=== PATIENT | male | born 1940 | race Caucasian/White ===

== ENCOUNTER 2019-02-22 09:58 | Outpatient (CLI) | payer MEDICARE | END 2019-02-22 09:59 | disposition home or self-care (01) | LOC: C.RT 09:58 | DX: J43.9 Emphysema, unspecified (principal) ==

== ENCOUNTER 2019-03-01 10:58 | Observation (INO) | payer MEDICARE ==
[2019-03-01 11:46] LABS: BASO % 0.2 % (0.0-2.0); EOS # 0.1 K/uL (0.0-0.7); EOS % 1.3 % (0.0-4.0); HEMOGLOBIN 13.9 g/dL (12.0-18.0); LYMPH % 10.3 % (20.0-40.0); MEAN CORPUSCULAR HEMOGLOBIN 36.5 pg (27.0-31.0); MEAN CORPUSCULAR HGB CONC 34.5 g/dL (33.0-37.0); MEAN PLATELET VOLUME 8.8 fL (7.2-11.7); MONO # 0.5 K/uL (0.0-0.8); MONO % 5.4 % (0.0-10.0); NEUT # 7.7 K/uL (1.8-7.0); NEUT % 82.8 % (50.0-75.0); RBC 3.8 Mil/uL (4.40-5.90); RED CELL DISTRIBUTION WIDTH 13.3 % (11.5-14.5)
[2019-03-01 11:57] LABS: MEAN CELL VOLUME 105.9 fL (80.0-94.0); WHITE BLOOD COUNT 9.3 K/uL (4.8-10.8)
[2019-03-01 12:18] LABS: BLOOD UREA NITROGEN 19 mg/dL (9-20); CALCIUM 9.2 mg/dl (8.6-10.4); GFR NON-AFRICAN AMERICAN 49
[2019-03-01 12:24] LABS: ALB/GLOB RATIO 1.1 (1.0-2.1); ALBUMIN 4.5 g/dL (3.5-5.0); ALT/SGPT 8 U/L (21-72); AST/SGOT 67 U/L (17-59)
[2019-03-01 13:00] LABS: B-TYPE NATRIURETIC PEPTIDE 54.7 pg/mL (0-900)
[2019-03-01 13:26] LABS: SQUAMOUS EPITHIAL < 1 /hpf (0-5); URINE BILIRUBIN NEGATIVE (NEGATIVE); URINE BLOOD NEGATIVE (NEGATIVE); URINE CLARITY Hazy (Clear); URINE COLOR Amber (YELLOW); URINE GLUCOSE (UA) NORMAL (Normal); URINE LEUKOCYTE ESTERASE NEG Leu/uL (Negative); URINE PROTEIN 1+ mg/dL (NEGATIVE)
--- NOTE | 2019-03-01 13:28 | RAD ---
Date of service: 03/01/2019 PROCEDURE: Radiographs of the chest and abdomen (obstructive series) HISTORY: belly pains, sob COMPARISON: No prior. TECHNIQUE: AP radiograph of the chest, with upright and supine radiographs of the abdomen. 3 views obtained. FINDINGS: CHEST: Lungs: Clear. Cardiovascular: Normal size heart. No pulmonary vascular congestion. No aortic atherosclerotic calcification present Pleura: No pleural fluid. No pneumothorax. Other findings: None. ABDOMEN AND PELVIS: Bowel: Constipation without fecal impaction or obstruction. Free air: None. Bones: Unremarkable. Other findings: None. IMPRESSION: Constipation without fecal impaction or obstruction. Concordant results with the preliminary interpretation rendered by the emergency department physician procedure.
--- NOTE | 2019-03-01 13:32 | C.PDOC ---
History Of Present Illness 79 y/o male brought to ER by ambulance for evaluation of sudden onset of hypotension. Patient was in his PMD 's office and he was found to have bp 80/40. Patient was also found to have heart rate in the 40's. He was found to be pale and ashen. 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 Denies having fever,chills, and other complaints at this time. Time Seen by Provider: 03/01/19 11:57 Chief Complaint (Nursing): Altered Mental Status History Per: Patient History/Exam Limitations: None Onset/Duration Of Symptoms: Hrs Current Symptoms Are (Timing): Gone Severity: Moderate Past Medical History Reviewed: Historical Data, Nursing Documentation, Vital Signs Vital Signs: Last Vital Signs Temp 97.5 F L 03/01/19 11:07 Pulse 72 03/01/19 11:07 Resp 16 03/01/19 11:07 BP 115/67 03/01/19 11:07 Pulse Ox 95 03/01/19 11:07 Primary Care Provider: Sydney Hong - Medical History PMH: Dementia (recent dx 03/05), HTN Other Surgeries: Hx of surgeries Family History: States: No Known Family Hx - Social History Hx Alcohol Use: No Hx Substance Use: No Review Of Systems Except As Marked, All Systems Reviewed And Found Negative. Constitutional: Positive for: Other (hypotension). Negative for: Fever, Chills Cardiovascular: Negative for: Chest Pain Respiratory: Negative for: Shortness of Breath Gastrointestinal: Negative for: Nausea, Vomiting, Abdominal Pain Physical Exam - Physical Exam Appears: No Acute Distress, Other (well developed obese male, hard of hearing, reads lips, speaks Uzbek, at bedside speaks Sami) Skin: Normal Color, Warm, Dry Head: Atraumatic, Normacephalic Eye(s): bilateral: Normal Inspection Nose: Normal Oral Mucosa: Moist Neck: Supple Chest: Symmetrical Cardiovascular: Rhythm Regular Respiratory: Normal Breath Sounds, No Rales, No Rhonchi, No Wheezing Gastrointestinal/Abdominal: Normal Exam, Soft, No Tenderness, No Guarding, No Rebound Neurological/Psych: Oriented x3, Normal Speech ED Course And Treatment - Laboratory Results Result Diagrams: 03/01/19 11:42 03/01/19 11:42 Lab Results: Troponin I < 0.0120 ng/mL (0.00-0.120) 03/01/19 11:42 NT-Pro-B Natriuret Pep 54.7 pg/mL (0-900) 03/01/19 11:42 Total Bilirubin 1.3 mg/dL (0.2-1.3) 03/01/19 11:42 AST 67 U/L (17-59) H 03/01/19 11:42 ALT 8 U/L (21-72) L D 03/01/19 11:42 Alkaline Phosphatase 75 U/L (38-126) 03/01/19 11:42 Total Protein 8.7 g/dL (6.3-8.3) H 03/01/19 11:42 Albumin 4.5 g/dL (3.5-5.0) 03/01/19 11:42 Globulin 4.2 gm/dL (2.2-3.9) H 03/01/19 11:42 Albumin/Globulin Ratio 1.1 (1.0-2.1) 03/01/19 11:42 Lab Interpretation: Normal ECG: Interpreted By Me ECG Rhythm: Sinus Rhythm ECG Interpretation: Normal Rate From EC O2 Sat by Pulse Oximetry: 95 (RA) Pulse Ox Interpretation: Normal (baseline) - Radiology CXR: Interpreted by Me CXR Interpretation: Yes: No Acute Disease - Other Rad abd x 2 X-Ray: Interpreted by Me (mod increased stool/gas) Reevaluation Time: 13:33 Reassessment Condition: Improved (remains asymptomatic, clear lungs, no complaints now) - Physician Consult Information Outcome Of Conversation: 1330: d/w Dr. Leary- PMD who referred him today- would like Tele Obs Medical Decision Making Medical Decision Making: ? vasovagal episode @ Dr. Leary's office- hypotensive and bradycardic benign presentation in ED normal w/u Tele obs Disposition Doctor Will See Patient In The: Hospital Counseled Patient/Family Regarding: Studies Performed, Diagnosis - Disposition Disposition: HOSPITALIZED Disposition Time: 13:35 Condition: GOOD - Clinical Impression Clinical Impression: Change in mental state - Scribe Statement The provider has reviewed the documentation as recorded by the Scribe Sascha Myers Provider Attestation: All medical record entries made by the Scribe were at my direction and personally dictated by me. I have reviewed the chart and agree that the record accurately reflects my personal performance of the history, physical exam, medical decision making, and the department course for this patient. I have also personally directed, reviewed, and agree with the discharge instructions and disposition.
[2019-03-01] MEDS: Sodium Chloride 0.45% 1,000 ML IV SCH (20:28)
[2019-03-02 07:30] LABS: CK-MB 0.48 ng/mL (0.0-3.38)
[2019-03-02 07:43] LABS: ALB/GLOB RATIO 1.1 (1.0-2.1); ALBUMIN 3.6 g/dL (3.5-5.0); ALT/SGPT 23 U/L (21-72); AST/SGOT 28 U/L (17-59); BLOOD UREA NITROGEN 16 mg/dL (9-20); CALCIUM 8.9 mg/dl (8.6-10.4); GFR NON-AFRICAN AMERICAN > 60
--- NOTE | 2019-03-02 11:08 | CP.PCM.CON ---
History of Present Illness - History of Present Illness History of Present Illness: The pt is an 79 yo man, non smoker, not a diabetic, non smoker, who has been on enalapril, aricept, and alpha alize for his prostate. Pt was in Dr Hong's office and she noted hi to be pale. BP was 80 systolic heart rate in the 40's. Pt says that had eaten that day. No chest pain. Pt here in the hospital feels better. TNI negative. ECG shows mild non specific st changes. Meds have been held. Glucose was high and pt has proteinuria. Review of Systems - Review of Systems All systems: reviewed and no additional remarkable complaints except (as above) Past Patient History - Past Social History Smoking Status: Never Smoked - CARDIAC Hx Hypertension: Yes - NEUROLOGICAL Hx Dementia: Yes (recent dx 03/05) - PSYCHIATRIC Hx Substance Use: No - SURGICAL HISTORY Hx Surgeries: Yes Other/Comment: right knee - ANESTHESIA Hx Anesthesia: Yes Hx Anesthesia Reactions: No Hx Malignant Hyperthermia: No Meds Allergies/Adverse Reactions: Allergies Allergy/AdvReac Type Severity Reaction Status Date / Time No Known Allergies Allergy Verified 03/01/19 11:02 - Medications Medications: Current Medications Donepezil HCl (Aricept) 5 mg PO HS REPLACED BY [facility] Last Admin: 03/01/19 21:16 Dose: 5 mg Heparin Sodium (Porcine) (Heparin) 5,000 units SC Q8 REPLACED BY [facility] Last Admin: 03/02/19 05:23 Dose: 5,000 units Sodium Chloride (Sodium Chloride 0.45%) 1,000 mls @ 60 mls/hr IV .[id number] REPLACED BY [facility] Last Admin: 03/01/19 20:28 Dose: 60 mls/hr Pneumococcal Polyvalent Vaccine (Pneumovax 23 Vaccine) 0.5 ml IM .ONCE ONE Stop: 03/03/19 10:01 Physical Exam - Constitutional Appears: Well - Head Exam Head Exam: ATRAUMATIC - Eye Exam Eye Exam: EOMI Pupil Exam: NORMAL ACCOMODATION - ENT Exam ENT Exam: Mucous Membranes Moist - Respiratory Exam Respiratory Exam: Clear to Auscultation Bilateral, NORMAL BREATHING PATTERN - Cardiovascular Exam Cardiovascular Exam: REGULAR RHYTHM - Exam External exam: NORMAL EXTERNAL EXAM - Extremities Exam Extremities exam: Positive for: normal inspection - Neurological Exam Neurological exam: Alert, CN II-XII Intact, Oriented x3, Reflexes Normal Additional comments: Pt is deaf, reads lips - Psychiatric Exam Psychiatric exam: Normal Affect, Normal Mood - Skin Skin Exam: Normal Color Results - Vital Signs Recent Vital Signs: Last Vital Signs Temp 97.9 F 03/02/19 07:53 Pulse 70 03/02/19 07:53 Resp 20 03/02/19 07:53 BP 134/81 03/02/19 07:53 Pulse Ox 96 03/02/19 07:53 - Labs Result Diagrams: 03/01/19 11:42 03/02/19 06:44 Labs: Laboratory Results - last 24 hr 03/01/19 03/01/19 03/01/19 11:21 11:42 11:42 WBC 9.3 D RBC 3.80 L Hgb 13.9 Hct 40.2 MCV 105.9 H D MCH 36.5 H MCHC 34.5 RDW 13.3 Plt Count 174 MPV 8.8 Neut % (Auto) 82.8 H Lymph % (Auto) 10.3 L [place] % (Auto) 5.4 Eos % (Auto) 1.3 Baso % (Auto) 0.2 Neut # (Auto) 7.7 H Lymph # (Auto) 1.0 [place] # (Auto) 0.5 Eos # (Auto) 0.1 Baso # (Auto) 0.0 Differential Comment APTT Sodium 136 Potassium 5.7 H Chloride 104 Carbon Dioxide 19 L Anion Gap 18 BUN 19 Creatinine 1.4 Est GFR ( Amer) 59 Est GFR (Non-Af Amer) 49 POC Glucose (mg/dL) 157 H Random Glucose 123 H D Calcium 9.2 Phosphorus Magnesium Total Bilirubin 1.3 AST 67 H ALT 8 L D Alkaline Phosphatase 75 Total Creatine Kinase CK-MB (Mass) Troponin I < 0.0120 NT-Pro-B Natriuret Pep 54.7 Total Protein 8.7 H Albumin 4.5 Globulin 4.2 H Albumin/Globulin Ratio 1.1 Urine Color Urine Clarity Urine pH Ur Specific Aspen Urine Protein Urine Glucose (UA) Urine Ketones Urine Blood Urine Nitrate Urine Bilirubin Urine Urobilinogen Ur Leukocyte Esterase Urine WBC (Auto) Urine RBC (Auto) Ur Squamous Epith Cells Hyaline Casts 03/01/19 03/02/19 03/02/19 13:16 06:44 06:44 WBC RBC Hgb Hct MCV MCH MCHC RDW Plt Count MPV Neut % (Auto) Lymph % (Auto) [place] % (Auto) Eos % (Auto) Baso % (Auto) Neut # (Auto) Lymph # (Auto) [place] # (Auto) Eos # (Auto) Baso # (Auto) Differential Comment APTT 36.3 H Sodium 137 Potassium 3.8 Chloride 105 Carbon Dioxide 24 Anion Gap 12 BUN 16 Creatinine 1.1 Est GFR ( Amer) > 60 Est GFR (Non-Af Amer) > 60 POC Glucose (mg/dL) Random Glucose 94 D Calcium 8.9 Phosphorus 2.7 Magnesium 2.0 Total Bilirubin 0.8 AST 28 ALT 23 Alkaline Phosphatase 65 Total Creatine Kinase 39 L CK-MB (Mass) 0.48 Troponin I < 0.0120 NT-Pro-B Natriuret Pep Total Protein 6.9 Albumin 3.6 Globulin 3.3 Albumin/Globulin Ratio 1.1 Urine Color Jeni Urine Clarity Hazy Urine pH 5.0 Ur Specific Aspen 1.016 Urine Protein 1+ H Urine Glucose (UA) Normal Urine Ketones Negative Urine Blood Negative Urine Nitrate Negative Urine Bilirubin Negative Urine Urobilinogen 2.0 Ur Leukocyte Esterase Neg Urine WBC (Auto) 2 Urine RBC (Auto) 1 Ur Squamous Epith Cells < 1 Hyaline Casts 11-20 H - EKG Data EKG shows normal: Sinus rhythm (mild non specific st changes) Assessment & Plan - Assessment and Plan (Free Text) Assessment: 1. Light headedness, hypotension: Pt looks well today, meds held. All of his meds, including aricept, can lead to orthostatic hypotension. BP is normal today wtihout them. 2. S Bradyc in the doctor's office, no here. Pt may have been vagal. Telemetry is continued 3. Hyperkalemia: possible lab error. Repeat. 4. Labs and UA suggest diabetes. HgA1c ordered. 5. Non specific st changes: are just that. Echo ordered to assess heart function.
--- NOTE | 2019-03-02 12:15 | CARD ---
APPROVED REPORT Date of service: 03/01/2019 EKG Measurement Heart [id number] <Conclusion> Normal sinus rhythm Nonspecific T wave abnormality Abnormal ECG
[2019-03-02] MEDS: Sodium Chloride 0.45% 1,000 ML IV SCH (13:28)
--- NOTE | 2019-03-02 18:22 | CP.PCM.HP ---
History of Present Illness - History of Present Illness History of Present Illness: cc; symptomatic hypotensive episode HPI Ptis 79 year old who was waiting in room to see me yesterday on a routine visit when he became hypotensive, pale, felt cold and dizzy. His bp and pulse dropped. Pt did not complaint of chest pain at the time. EMS was called and pt transferred for eval. PT did complaint of epigastric pain at the time. Hi sugar was 167 in my office and EKG done did not reveal any arrythmias at the time. Pt has had a few episodes in the last month or two per . Pt has been well since admission K was elevated initially. he was on vasotec which has been held since then. Review of Systems - Review of Systems Systems not reviewed;Unavailable: Unstable Vital Signs - EENT Eyes: absent: Blurred Vision Nose/Mouth/Throat: absent: Epistaxis - Cardiovascular Cardiovascular: Diaphoresis, Lightheadedness. absent: Chest Pain, Edema, Orth opnea, Slow Heart Rate - Respiratory Respiratory: absent: Cough - Gastrointestinal Gastrointestinal: Abdominal Pain. absent: Diarrhea - Genitourinary Genitourinary: absent: Change in Urinary Stream Past Patient History - Past Social History Smoking Status: Never Smoked - CARDIAC Hx Hypertension: Yes - NEUROLOGICAL Hx Dementia: Yes (recent dx 03/05) - PSYCHIATRIC Hx Substance Use: No - SURGICAL HISTORY Hx Surgeries: Yes Other/Comment: right knee - ANESTHESIA Hx Anesthesia: Yes Hx Anesthesia Reactions: No Hx Malignant Hyperthermia: No Meds Allergies/Adverse Reactions: Allergies Allergy/AdvReac Type Severity Reaction Status Date / Time No Known Allergies Allergy Verified 03/01/19 11:02 Physical Exam - Constitutional Appears: Non-toxic - Eye Exam Eye Exam: EOMI - ENT Exam ENT Exam: Mucous Membranes Moist - Respiratory Exam Respiratory Exam: Clear to Auscultation Bilateral, NORMAL BREATHING PATTERN. absent: Rales - Cardiovascular Exam Cardiovascular Exam: REGULAR RHYTHM, RRR, +S1. absent: JVD - GI/Abdominal Exam GI & Abdominal Exam: Normal Bowel Sounds Results - Vital Signs Recent Vital Signs: Last Vital Signs Temp 98.2 F 03/02/19 15:30 Pulse 82 03/02/19 16:00 Resp 20 03/02/19 15:30 BP 137/85 03/02/19 15:30 Pulse Ox 95 03/02/19 16:00 - Labs Result Diagrams: 03/01/19 11:42 03/02/19 06:44 Labs: Laboratory Results - last 24 hr 03/02/19 03/02/19 06:44 06:44 APTT 36.3 H Sodium 137 Potassium 3.8 Chloride 105 Carbon Dioxide 24 Anion Gap 12 BUN 16 Creatinine 1.1 Est GFR ( Amer) > 60 Est GFR (Non-Af Amer) > 60 Random Glucose 94 D Calcium 8.9 Phosphorus 2.7 Magnesium 2.0 Total Bilirubin 0.8 AST 28 ALT 23 Alkaline Phosphatase 65 Total Creatine Kinase 39 L CK-MB (Mass) 0.48 Troponin I < 0.0120 Total Protein 6.9 Albumin 3.6 Globulin 3.3 Albumin/Globulin Ratio 1.1 Assessment & Plan - Assessment and Plan (Free Text) Assessment: sp symptomatic hypotension appreciate Cardio eval off arabella due to hyperkalemia await for echo possible dc tomorrow
--- NOTE | 2019-03-02 19:56 | CARD ---
APPROVED REPORT Date of service: 03/02/2019 EXAM: Two-dimensional and M-mode echocardiogram with Doppler and color Doppler. INDICATION Abnormal EKG/Arrhythmia RISK FACTORS Hypertension 2D DIMENSIONS IVSd1.3 (0.7-1.1cm)LVDd4.7 (3.9-5.9cm) PWd1.2 (0.7-1.1cm)LA Fuptur33 (18-58mL) LVDs2.7 (2.5-4.0cm)FS (%) 41.5 % LVEF (%)72.4 (>50%)LVEF (Aragon's)60 % M-Mode DIMENSIONS Left Atrium (MM)3.96 (2.5-4.0cm)IVSd0.98 (0.7-1.1cm) Aortic Root3.79 (2.2-3.7cm)LVDd5.23 (4.0-5.6cm) Aortic Cusp Exc.1.89 (1.5-2.0cm)PWd0.94 (0.7-1.1cm) FS (%) 35 %LVDs3.40 (2.0-3.8cm) LVEF (%)64 (>50%) Mitral Valve MV E Ylkrtvrh93.1cm/sMV A Jvtvsjda43.7cm/sE/A ratio0.8 TDI Lateral E' Peak V9.19cm/sMedial E' Peak V6.74cm/sE/Lateral E'8.3 E/Medial E'11.3 Tricuspid Valve TR Peak [id number]/sTR Peak Gr.[id number] LEFT VENTRICLE The left ventricle is normal size. There is normal left ventricular wall thickness. The left ventricular function is normal. The left ventricular ejection fraction is within the normal range. No regional wall motion abnormalities noted. The left ventricular diastolic function is normal. No left ventricle thrombus noted on this study. There is no ventricular septal defect visualized. There is no left ventricular aneurysm. There is no mass noted in the left ventricle. RIGHT VENTRICLE The right ventricle is normal size. There is normal right ventricular wall thickness. The right ventricular systolic function is normal. ATRIA The left atrium size is normal. The right atrium size is normal. The interatrial septum is intact with no evidence for an atrial septal defect. AORTIC VALVE The aortic valve is normal in structure and function. No aortic regurgitation is present. There is no aortic valvular stenosis. There is no aortic valvular vegetation. MITRAL VALVE The mitral valve is normal in structure and function. There is no evidence of mitral valve prolapse. There is no mitral valve stenosis. There is no mitral valve regurgitation noted. TRICUSPID VALVE The tricuspid valve is normal in structure and function. There is no tricuspid valve regurgitation noted. There is no tricuspid valve prolapse or vegetation. There is no tricuspid valve stenosis. PULMONIC VALVE The pulmonary valve is normal in structure and function. There is no pulmonic valvular regurgitation. There is no pulmonic valvular stenosis. GREAT VESSELS The aortic root is normal in size. The ascending aorta is normal in size. The pulmonary artery is normal. The IVC is normal in size and collapses >50% with inspiration. PERICARDIAL EFFUSION The pericardium appears normal. There is no pleural effusion. <Conclusion> The left ventricular function is normal. The left ventricular ejection fraction is within the normal range. No regional wall motion abnormalities noted. .
[2019-03-03 08:17] VITALS: RESP 18; TEMP 98; O2SAT 97
[2019-03-03 08:41] VITALS: PULSE 57
[2019-03-03] MEDS ORDERED: Pneumococcal 23-Valent Vaccine IM ONE (10:00)
--- NOTE | 2019-03-03 10:11 | CP.PCM.PN ---
Subjective - Date & Time of Evaluation Date of Evaluation: 03/03/19 Time of Evaluation: 10:09 - Subjective Subjective: Pt feels well. bp now 153 systolic Objective - Vital Signs/Intake and Output Vital Signs (last 24 hours): Temp Pulse Resp BP Pulse Ox 98 F 57 L 18 153/92 H 97 03/03/19 07:30 03/03/19 07:33 03/03/19 07:30 03/03/19 07:30 03/03/19 07:30 - Medications Medications: Current Medications Donepezil HCl (Aricept) 5 mg PO HS [facility] Last Admin: 03/02/19 21:25 Dose: 5 mg Doxazosin Mesylate (Cardura) 2 mg PO HS [facility] Last Admin: 03/02/19 21:25 Dose: 2 mg Heparin Sodium (Porcine) (Heparin) 5,000 units SC Q8 [facility] Last Admin: 03/03/19 05:59 Dose: 5,000 units - Labs Labs: 03/01/19 11:42 03/02/19 06:44 APTT 36.3 SECONDS (21-34) H 03/02/19 06:44 - Constitutional Appears: Well - Head Exam Head Exam: NORMAL INSPECTION - Eye Exam Eye Exam: EOMI Pupil Exam: NORMAL ACCOMODATION - ENT Exam ENT Exam: Mucous Membranes Moist - Respiratory Exam Respiratory Exam: Clear to Ausculation Bilateral, NORMAL BREATHING PATTERN - Cardiovascular Exam Cardiovascular Exam: REGULAR RHYTHM - GI/Abdominal Exam GI & Abdominal Exam: Normal Bowel Sounds - Extremities Exam Extremities Exam: Full ROM - Neurological Exam Neurological Exam: Awake, CN II-XII Intact - Skin Skin Exam: Dry Assessment and Plan - Assessment and Plan (Free Text) Assessment: 1. Hypotension: I would suggest stopping aricept, as it is know to cause hyp otension. Pt is also on an alpha alize for BPH, another possible cause. 2. BP is not high. HR is too slow for b alize, Will resume enalapril. Echo is normal
[2019-03-03 10:12] VITALS: BP 138/84
--- NOTE | 2019-03-04 15:10 | CP.PCM.PN ---
Subjective - Date & Time of Evaluation Date of Evaluation: 03/03/19 Time of Evaluation: 12:45 - Subjective Subjective: Patient seen today , denies any complaints , sitting up in bed , No overnigh t events reported by RN vss and BP STABLE - HR ABOVE 60'S Objective - Vital Signs/Intake and Output Vital Signs (last 24 hours): Temp Pulse Resp BP Pulse Ox 98 F 57 L 18 138/84 97 03/03/19 07:30 03/03/19 07:33 03/03/19 07:30 03/03/19 10:25 03/03/19 07:30 - Labs Labs: 03/01/19 11:42 03/02/19 06:44 APTT 36.3 SECONDS (21-34) H 03/02/19 06:44 Assessment and Plan - Assessment and Plan (Free Text) Assessment: A/P 79 y/o male brought to ER from 's office by ambulance for evaluation of sudden onset of hypotension. bp stable seen by Dr. Mandel D/w Dr. Hong , cleared for discharge home today an df/u with her office next week wednesday and stop taking enalapril and aricept continue Namenda , and Norvasc 2.5 mg po daily and continue cardura discharge plan discussed with patient , who understnds and agrees with plan RX e prescribed to patient pharmacy
== END 2019-03-03 13:39 | disposition home or self-care (01) ==
LOC: C.ER 10:58 → C.6T 13:36
PROVIDERS: ADMIT Internal Medicine; ATTEND Internal Medicine
DX: I95.9 Hypotension, unspecified (principal); E87.5 Hyperkalemia; N40.0 Benign prostatic hyperplasia without lower urinary tract symptoms; F03.90 Unspecified dementia, unspecified severity, without behavioral disturbance, psychotic disturbance, mood disturbance, and anxiety; Z23 Encounter for immunization; I10 Essential (primary) hypertension; Z79.899 Other long term (current) drug therapy; R80.9 Proteinuria, unspecified
CPT/HCPCS: 36415; 74022; 80053; 81001; 82948; 83036; 83735; 83880; 84100; 84484; 85025; 85730; 90732; 93005; 93306; 99285; G0009; G0378; J1644; J7030